=== PATIENT | male | born 1980 | race Caucasian/White ===

== ENCOUNTER 2016-05-15 12:10 | Emergency (ER) | payer OTHER ==
[2016-05-15 13:19] LABS: Urine Bilirubin Negative (Negative); Urine Glucose Negative (Negative); Urine Nitrite Negative (Negative)
[2016-05-15 13:39] LABS: Hematocrit 47 % (42-52); Hemoglobin 15.7 g/dl (14.0-18.0); Mean Corpuscular HGB Conc 34 g/dl (31-36); Mean Corpuscular Hemoglobin 29 pg (27-31); Mean Corpuscular Volume 86 fL (80-94); Mean Platelet Volume 7 um3 (7.4-10.4); Red Blood Count 5.45 10^6/ul (4.0-5.4); Red Cell Distribution Width 14 % (10.5-15); White Blood Count 8.8 10^3/ul (3.5-10.8)
[2016-05-15 13:43] LABS: Benzodiazepine Urine Screen Presumptive Positive (None Detect)
[2016-05-15 13:58] LABS: ALT 44 U/L (7-52); AST 22 U/L (13-39); Alkaline Phosphatase 55 U/L (34-104); Anion Gap 5 mmol/L (2-11); BUN/Creatinine Ratio 14.3 (8-20); Blood Urea Nitrogen 13 mg/dL (6-24); CO2 Carbon Dioxide 30 mmol/L (22-32); Calcium 9.2 mg/dL (8.6-10.3); Chloride 103 mmol/L (101-111); EGFR African American 122.7 (>60); EGFR Non-African American 95.4 (>60); Globulin 2.5 g/dL (2-4); Glucose 83 mg/dL (70-100); Potassium 3.9 mmol/L (3.5-5.0); Sodium 138 mmol/L (133-145); Total Protein 6.5 g/dL (6.4-8.9)
[2016-05-15 14:16] LABS: Acetaminophen < 15 mcg/mL; Alcohol < 10 mg/dL (<10); Salicylate < 2.50 mg/dL (<30)
[2016-05-15 14:26] LABS: TSH (Thyroid Stimulating Horm) 1.31 mcIU/mL (0.34-5.60)
[2016-05-15 16:03] VITALS: BP 121/77
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
== END 2016-05-15 17:00 | disposition home or self-care (01) ==
LOC: ED 12:10
DX: F32.9 Major depressive disorder, single episode, unspecified (principal); R45.851 Suicidal ideations
CPT/HCPCS: 36415; 80053; 80307; 80320; 80329; 81003; 84443; 85025; 99284; G0480

== ENCOUNTER 2016-06-20 20:37 | Inpatient (IN) | payer OTHER ==
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
[2016-06-20 21:49] LABS: Hematocrit 50 % (42-52); Hemoglobin 16.6 g/dl (14.0-18.0); Mean Corpuscular HGB Conc 33 g/dl (31-36); Mean Corpuscular Hemoglobin 29 pg (27-31); Mean Corpuscular Volume 86 fL (80-94); Mean Platelet Volume 7 um3 (7.4-10.4); Red Cell Distribution Width 14 % (10.5-15); White Blood Count 7.5 10^3/ul (3.5-10.8)
[2016-06-20 22:00] LABS: Urine Bacteria Absent (Absent); Urine Bilirubin Negative (Negative); Urine Glucose Negative (Negative); Urine Nitrite Negative (Negative)
[2016-06-20 22:02] LABS: ALT 26 U/L (7-52); AST 17 U/L (13-39); Albumin 4.4 g/dL (3.2-5.2); Alkaline Phosphatase 54 U/L (34-104); Anion Gap 3 mmol/L (2-11); BUN/Creatinine Ratio 13.6 (8-20); Blood Urea Nitrogen 16 mg/dL (6-24); CO2 Carbon Dioxide 34 mmol/L (22-32); Calcium 9.9 mg/dL (8.6-10.3); Chloride 101 mmol/L (101-111); EGFR African American 90.9 (>60); EGFR Non-African American 70.7 (>60); Globulin 2.9 g/dL (2-4); Glucose 84 mg/dL (70-100); Potassium 4.5 mmol/L (3.5-5.0); Sodium 138 mmol/L (133-145); Total Protein 7.3 g/dL (6.4-8.9)
[2016-06-20 22:10] LABS: Benzodiazepine Urine Screen Presumptive Positive (None Detect)
[2016-06-20 22:24] LABS: Acetaminophen < 15 mcg/mL; Alcohol < 10 mg/dL (<10); Salicylate < 2.50 mg/dL (<30)
[2016-06-20 22:35] LABS: TSH (Thyroid Stimulating Horm) 1.52 mcIU/mL (0.34-5.60)
[2016-06-21] MEDS ORDERED: clonazePAM TAB(*) 1 MG PO ONE (13:48)
[2016-06-21] MEDS ORDERED: ARIPiprazole TAB* 5 MG PO ONE (13:52)
[2016-06-21] MEDS ORDERED: Nicotine Inhaler* 10 MG AMP INH PRN (16:12)
[2016-06-21] MEDS ORDERED: Nicotine GUM* 2 MG PO PRN (16:12)
[2016-06-21] MEDS ORDERED: Acetaminophen TAB* 325 MG PO PRN (16:14)
[2016-06-21] MEDS ORDERED: LORazepam TAB(*) 1 MG PO PRN (16:14)
[2016-06-21] MEDS ORDERED: Al Hydrox/Mg Hydrox/Simet LIQ* 30 ML UDC PO PRN (16:15)
--- NOTE | 2016-06-21 16:56 | RAD ---
INDICATION: Fall. Evaluate for intracranial injury. COMPARISON: None TECHNIQUE: Noncontrast axial source images were acquired from the skull base to the vertex. FINDINGS: Ventricles/sulci: The ventricles and cisterns are normal in size and configuration for age. Brain parenchyma: There is no focal parenchymal finding, evidence of intracranial mass, or intracranial mass effect. Intracranial hemorrhage:None. Extra-axial spaces: There are no abnormal extra axial fluid collections or evidence of extra-axial mass. Calvarium: There is no calvarial fracture or other calvarial abnormality. Scalp: There is no evidence of scalp or extracalvarial soft tissue abnormality. Paranasal sinuses/mastoid: The paranasal sinuses and mastoid air cells are clear. Other: None. IMPRESSION: NEGATIVE EXAMINATION
[2016-06-21] MEDS ORDERED: LORazepam INJ* 2 MG/ML 1 ML VIAL IM ONE (17:34)
[2016-06-21] MEDS ORDERED: diPHENhydraMINE IV* 50 MG/ML 1 ml VIAL (BENADRYL) IM ONE (17:35)
[2016-06-21] MEDS ORDERED: Haloperidol INJ IV/IM* 5 MG/ML AMP IM ONE (17:36)
[2016-06-21 20:53] LABS: BUN/Creatinine Ratio 12.9 (8-20); Calcium 9.7 mg/dL (8.6-10.3); EGFR African American 85.8 (>60); EGFR Non-African American 66.7 (>60); Potassium 4.5 mmol/L (3.5-5.0)
[2016-06-22] MEDS: CMCS: Amphetamine/Dextroamph ER(NF) 10 MG CAP.ER PO SCH ×2 (08:31→09:57)
[2016-06-22] MEDS: Sertraline* 100 MG TAB PO SCH (17:33)
[2016-06-22] MEDS: buPROPion TAB* 75 MG PO SCH (17:34)
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
[2016-06-23] MEDS: Sertraline* 100 MG TAB PO SCH (09:35)
[2016-06-23] MEDS: buPROPion TAB* 75 MG PO SCH ×2 (09:35→16:53)
[2016-06-23] MEDS: CMCS: Amphetamine/Dextroamph ER(NF) 10 MG CAP.ER PO SCH (09:35)
--- NOTE | 2016-06-23 19:50 | PN ---
Progress Note - Progress Note Note: Patient told there are two patients on the unit (did not disclose their names) who have tested positive for Influenza A and I am recommending taking Tamiflu as a prophylactic measure. I made it clear this was optional. He agreed to the treatment after hearing of the indications, risks, benefits and alternatives.
[2016-06-23] MEDS: traZODone TAB* 50 MG TAB PO SCH (21:50)
[2016-06-24] MEDS: Oseltamivir CAP* 75 MG PO SCH (10:27)
[2016-06-24] MEDS: Sertraline* 100 MG TAB PO SCH (10:27)
[2016-06-24] MEDS: CMCS: Amphetamine/Dextroamph ER(NF) 10 MG CAP.ER PO SCH (10:27)
[2016-06-24] MEDS: buPROPion TAB* 75 MG PO SCH ×2 (10:28→17:09)
--- NOTE | 2016-06-24 16:47 | PN ---
Subjective - Subjective Subjective: Noel endorses improved sleep (with the prescribed Trazodone), improving mood despite being distressed by continued admission and lack of a clear sense about how long he will remain admitted here. He avidly denies suicidal/homicidal ideation. He was evasive when confronted about inconsistencies in his story ( not mentioning Dr. Yang, recent hospitalization in [place], self-injury, and thoughts and treat of suicide, and previous ED visit here on recommendation of outpatient psychiatrist). He asserts the text messages provided by his were edited and not properly translated from Polish to Bulgarian. Per staff, he has been more visible in the milieu and has selectively attended some unit's activities. He has submitted a 72-hour notice, Objective - Appearance Appearance: Healthy Appearing Dysmorphic Features: No Hygiene: Normal Grooming: Fairly Well Kept - Behavior Psychomotor Activities: Normal Exhibits Abnormal Movement: No - Attitude and Relatedness Attitude and Relatedness: Superficially Cooperative Eye Contact: Fair - Speech Quality: Unpressured Latencies: Normal Quantity: Appropriate - Mood Patient's Decription of Mood: "Okay" - Affect Observed Affect: Constricted Affect Consistent with: Dysphoria - Thought Process Patient's Thought Process: Coherent, Goal Directed Thought Content: No Passive Wish, No Suicidal Planning, No Homicidal Ideation, No Paranoid Ideation - Sensorium Experiencing Hallucinations: No, Sensorium is Clear - Level of Consciousness Level of Consciousness: Alert Orientation: Yes Intact - Impulse Control Impulse Control: Intact - Insight and Judgement Insight and Judgement: Fair - Group Participation Particating in Group Activities: Yes - Medication Management Medication Management Adherence: Yes Assessment - Assessment Merits Inpatient Hospitalization: For Ongoing Evaluation, Consolidate Improvements, For Discharge Planning Inpatient DSM-IV Dx: Adjustment disorder with mixed disturbances of emotions and conduct. 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 Cluster B traits. Clinical Impression: A 35-year-old [place] citizen who was brought in by police from his 's friend's home where he presented demanding to see his and threatening to harm the 's friends and her family. The police were called and drove him to the ED for [facility] given his psychiatric history. He denies history of previous psychiatric admission (collateral info indicates otherwise). He has previous diagnoses of panic disorder, ADHD, and major depressive disorder. He is medicated with sertraline 100 mg daily, Wellbutrin XL 150 mg daily, Adderall XR 30 mg daily, and clonazepam 1 mg p.o. daily p.r.n. for anxiety. He asserts adherence to treatment. His reports that was not the case. Medical history is remarkable for a syncopal episode while in the emergency department. He denies any family history of psychiatric illnesses or completed suicides. He denies substance abuse. He listed stressors of currently strained relationship with his , not being able to see his 3-year-old daughter, having been served with an order of protection while admitted, and feeling socially isolated. Superficially engaged in programming here, reporting distress related to continued admission, but improving mood and absence of suicidal/homicidal ideation and he contracts for safety. Tolerating continuation of trials of Adderall and Sertraline and new trial of Trazodone. He needs continued admission to assess his risks. He has submitted a 72-hour notice. Plan - Plan Treatment Plan: Name: NOEL SRIVASTAVA Birthdate: 1980 [id number] Psychological testing ordered; Continued Medication Management: Continue Outpt Medication Medications: Current Medications Acetaminophen (Tylenol Tab*) 650 mg PO Q6H PRN PRN Reason: PAIN Al Hydrox/Mg Hydrox/Simethicone (Maalox Plus*) 30 ml PO Q6H PRN PRN Reason: INDIGESTION Amphetamine/Dextroamphetamine (Adderal Xr (Nf)) 30 mg PO DAILY [facility] Last Admin: 06/24/16 10:27 Dose: Not Given Bupropion HCl (Wellbutrin Tab*) 75 mg PO 0800,1700 [facility] Last Admin: 06/24/16 10:28 Dose: 75 mg Lorazepam (Ativan Tab(*)) 2 mg PO Q6H PRN PRN Reason: AGITATION/ANXIETY/INSOMNIA Oseltamivir Phosphate (Tamiflu Cap*) 75 mg PO DAILY [facility] Stop: 07/03/16 09:01 Last Admin: 06/24/16 10:27 Dose: 75 mg Sertraline HCl (Zoloft*) 100 mg PO DAILY [facility] Last Admin: 06/24/16 10:27 Dose: 100 mg Trazodone HCl (Desyrel Tab*) 50 mg PO BEDTIME [facility] Last Admin: 06/23/16 21:50 Dose: 50 mg - Discharge Plan Discharge Plan: Outpatient Follow Up Outpatient Program: Private Clinician(s) Additional Comments: Dr. Nik Yang
[2016-06-24] MEDS: traZODone TAB* 50 MG TAB PO SCH (21:08)
[2016-06-25] MEDS: Sertraline* 100 MG TAB PO SCH (10:59)
[2016-06-25] MEDS: Oseltamivir CAP* 75 MG PO SCH (11:00)
[2016-06-25] MEDS: buPROPion TAB* 75 MG PO SCH ×2 (11:01→16:49)
[2016-06-25] MEDS: CMCS: Amphetamine/Dextroamph ER(NF) 10 MG CAP.ER PO SCH (11:02)
--- NOTE | 2016-06-25 12:31 | PN ---
Subjective - Subjective Service Type: 23586 Hosp care 25 min moderate complexity Subjective: Noel asks for discharge, had submitted in writing his request on Friday. He understands that since I cannot ascertain at this time the safety of his against his threats to kill her, nor his safety against his threats to kill himself, I will ask for a court hearing on the matter of retention for continued involuntary psychiatric care. I understand from Dr Jay that Noel had not been forthcoming about certain post facts of his case and had offered to him, similar to his reports to me, reports conflicting with evidence such as text messages indicating threats on his and his 's life. These conflicting reports reduce the reliability of his current report of remitted SI/HI. Noel explained how he feels his is misrepesenting the facts of the case by stating that he could accuse me of threatening him like she is accusing him of threatening her. MMPI is in progress, which may help clarify diagnosis. Objective - Appearance Appearance: Healthy Appearing Dysmorphic Features: No Hygiene: Normal Grooming: Well Kept - Behavior Psychomotor Activities: Normal Exhibits Abnormal Movement: No - Attitude and Relatedness Attitude and Relatedness: Guarded Eye Contact: Fair - Speech Quality: Unpressured Latencies: Normal Quantity: Appropriate - Mood Patient's Decription of Mood: "Great" - - "Except worried about my career, worried about missing work" - Affect Observed Affect: Tense Affect Consistent with: Dysphoria - Thought Process Patient's Thought Process: Coherent, Goal Directed Thought Content: No Passive Wish, No Suicidal Planning, No Homicidal Ideation, No Paranoid Ideation - Sensorium Experiencing Hallucinations: No, Sensorium is Clear Type of Hallucinations: Visual: No, Auditory: No, Command: No - Level of Consciousness Level of Consciousness: Alert Orientation: Yes Intact, Yes Orientated to Time, Yes Orientated to Place, Yes Orientated to Person - Impulse Control Impulse Control: Intact - Insight and Judgement Insight and Judgement: Poor - Group Participation Particating in Group Activities: Yes Group Participation Comments: but only rarely - Medication Management Medication Management Adherence: Yes Assessment - Assessment Merits Inpatient Hospitalization: For Immediate Safety, For Stabilization, For Ongoing Evaluation, For Discharge Planning Inpatient DSM-IV Dx: Adjustment disorder with mixed disturbances of emotions and conduct. 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 Cluster B traits. Clinical Impression: Noel is a 35 year-old man admitted for safety, assessment and treatment after texting threats to his to kill himself and to kill her. He has been guarded and not forthcoming in his reports of history, calling into question reliability of his report of subjective mental status. We cannot guarantee the safety of others from Noel, but we can warn them, and we can gather more information to inform our understanding of his mental status and how that might impact safety concerns. MMPI is in progress. He has put in a note indicating his intent to leave the facility, so we will file for a retention hearing. He continues on Wellbutrin, Zoloft and prn Ativan (not taking). He is refusing ordered Adderall. Plan - Plan Treatment Plan: Name: NOEL SRIVASTAVA Birthdate: 1980 [id number] Continue current meds. Gather collateral, complete MMPI. Encourage more forthcoming report of history and subjective experience. Encourage group attendance. Arrange for f/u with [facility] per patient preference. Continued Medication Management: Continue Outpt Medication Medications: Current Medications Acetaminophen (Tylenol Tab*) 650 mg PO Q6H PRN PRN Reason: PAIN Al Hydrox/Mg Hydrox/Simethicone (Maalox Plus*) 30 ml PO Q6H PRN PRN Reason: INDIGESTION Amphetamine/Dextroamphetamine (Adderal Xr (Nf)) 30 mg PO DAILY [facility] Last Admin: 06/25/16 11:02 Dose: Not Given Bupropion HCl (Wellbutrin Tab*) 75 mg PO 0800,1700 [facility] Last Admin: 06/25/16 11:01 Dose: 75 mg Lorazepam (Ativan Tab(*)) 2 mg PO Q6H PRN PRN Reason: AGITATION/ANXIETY/INSOMNIA Oseltamivir Phosphate (Tamiflu Cap*) 75 mg PO DAILY [facility] Stop: 07/03/16 09:01 Last Admin: 06/25/16 11:00 Dose: 75 mg Sertraline HCl (Zoloft*) 100 mg PO DAILY [facility] Last Admin: 06/25/16 10:59 Dose: 100 mg Trazodone HCl (Desyrel Tab*) 50 mg PO BEDTIME [facility] Last Admin: 06/24/16 21:08 Dose: Not Given - Discharge Plan Discharge Plan: Outpatient Follow Up
[2016-06-25] MEDS: traZODone TAB* 50 MG TAB PO SCH (20:39)
[2016-06-26] MEDS: Oseltamivir CAP* 75 MG PO SCH (08:36)
[2016-06-26] MEDS: buPROPion TAB* 75 MG PO SCH (08:36)
[2016-06-26] MEDS: Sertraline* 100 MG TAB PO SCH (08:36)
[2016-06-26] MEDS: CMCS: Amphetamine/Dextroamph ER(NF) 10 MG CAP.ER PO SCH (08:36)
--- NOTE | 2016-06-26 16:30 | PN ---
Subjective - Subjective Service Type: 31392 Hosp care 25 min moderate complexity Subjective: Noel continues to give 'all is well' report at complete variance with all other reports of his behavior in recent days, which is that he has made serious threats toward his , his 's friends, and coworkers at [employer]. Noel had indicated earlier today that he no longer wished to pursue a legal challenge to his admission, then when approached to document his decision in writing, stated he wished to pursue a legal challenge. Objective - Appearance Appearance: Healthy Appearing Dysmorphic Features: No Hygiene: Normal Grooming: Fairly Well Kept - Behavior Psychomotor Activities: Normal Exhibits Abnormal Movement: No - Attitude and Relatedness Attitude and Relatedness: Superficially Cooperative Eye Contact: Fair - Speech Quality: Unpressured Latencies: Normal Quantity: Terse - Mood Patient's Decription of Mood: "Okay" - Affect Observed Affect: Fair Affect Consistent with: Euthymia - Thought Process Patient's Thought Process: Coherent, Goal Directed Thought Content: No Passive Wish, No Suicidal Planning, No Homicidal Ideation, No Paranoid Ideation - Sensorium Experiencing Hallucinations: No, Sensorium is Clear Type of Hallucinations: Visual: No, Auditory: No, Command: No - Level of Consciousness Level of Consciousness: Alert Orientation: Yes Intact, Yes Orientated to Time, Yes Orientated to Place, Yes Orientated to Person - Impulse Control Impulse Control: Intact - Insight and Judgement Insight and Judgement: Poor - Group Participation Particating in Group Activities: No - Medication Management Medication Management Adherence: Yes Assessment - Assessment Merits Inpatient Hospitalization: For Immediate Safety, For Stabilization, For Discharge Planning, Pending Safe DC Plan Inpatient DSM-IV Dx: Adjustment disorder with mixed disturbances of emotions and conduct. 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 Cluster B traits. Clinical Impression: Noel is a 35 year-old man admitted for safety, assessment and treatment after texting threats to his to kill himself and to kill her. He has been guarded and not forthcoming in his reports of history, calling into question reliability of his report of subjective mental status. We cannot guarantee the safety of others from Noel, but we can warn them, and we can gather more information to inform our understanding of his mental status and how that might impact safety concerns. MMPI is in progress. He has put in a note indicating his intent to leave the facility, so we will file for a retention hearing. He continues on Wellbutrin, Zoloft and prn Ativan (not taking). He is refusing ordered Adderall. 06.26.16 Noel continues to minimize and refute other's reports of his threats toward them. So far, we have report of threats to slit his 's throat and cut off her head, to kill her friends and their children, and to harm coworkers. Attempted to request collateral from his psychiatrist Dr Zarate, but the [facility] phone staff sent me in circles through their convoluted phone gateway: awaiting return call from voicemail left for Dr Zarate at [facility] office. Court papers are filed, hearing scheduled for 9:30 am Friday. For abdi details of threats, please see Ms Frey's note from 06.26.16 at 1303. Plan - Plan Treatment Plan: Name: NOEL SRIVASTAVA Birthdate: 1980 [id number] Discontinue Adderall and Wellbutrin, start Zyprexa 10 mg at bedtime against disorganized thought. Gather collateral, complete MMPI. Encourage more forthcoming report of history and subjective experience. Encourage group attendance. Consider possibility of long-term care with emerging picture of paranoia and multiple threats of violence with completely guarded presentation. Medications: Current Medications Acetaminophen (Tylenol Tab*) 650 mg PO Q6H PRN PRN Reason: PAIN Al Hydrox/Mg Hydrox/Simethicone (Maalox Plus*) 30 ml PO Q6H PRN PRN Reason: INDIGESTION Amphetamine/Dextroamphetamine (Adderal Xr (Nf)) 30 mg PO DAILY [facility] Last Admin: 06/26/16 08:36 Dose: Not Given Bupropion HCl (Wellbutrin Tab*) 75 mg PO 0800,1700 [facility] Last Admin: 06/26/16 08:36 Dose: 75 mg Lorazepam (Ativan Tab(*)) 2 mg PO Q6H PRN PRN Reason: AGITATION/ANXIETY/INSOMNIA Oseltamivir Phosphate (Tamiflu Cap*) 75 mg PO DAILY [facility] Stop: 07/03/16 09:01 Last Admin: 06/26/16 08:36 Dose: 75 mg Sertraline HCl (Zoloft*) 100 mg PO DAILY [facility] Last Admin: 06/26/16 08:36 Dose: 100 mg Trazodone HCl (Desyrel Tab*) 50 mg PO BEDTIME [facility] Last Admin: 06/25/16 20:39 Dose: 50 mg - Discharge Plan Discharge Plan: Consider Longer Term Tx
[2016-06-26] MEDS: traZODone TAB* 50 MG TAB PO SCH (21:31)
[2016-06-26] MEDS: OLANzapine TAB*ODT* 10 MG TAB PO SCH (21:31)
[2016-06-27] MEDS: Sertraline* 100 MG TAB PO SCH (09:42)
[2016-06-27] MEDS: Oseltamivir CAP* 75 MG PO SCH (09:42)
--- NOTE | 2016-06-27 11:14 | PN ---
Subjective - Subjective Service Type: 64986 Hosp care 15 min low complexity Subjective: Noel reports today that he thinks his aggression and threatening behavior are all related to taking 6 mg daily of Klonopin on prescription from Dr Yang. He reports that his agrees with him on this point. He reports that he has been seeing Dr Yang for the past year and a half. He reports that he began working with Dr Myles Zarate about one year ago and continued to see Dr Yang as he was seeing Dr Zarate. He reports that they were aware of each other providing overlapping care. Dr Yang reports he did not know Noel was seeing Dr Zarate. Noel reports that the only care he received before receiving care from Reggie Yang and Tessa was in [phone] from a provider in [place] whose name he has forgotten. He told me previously that he had only seen someone in a clinic while in [place] this past May. Dr Yang reports that it was his understanding that Noel had taken an overdose of medications as a suicide attempt while in [place] in May and had been psychiatrically hospitalized. Noel violated the order of protection held by his yesterday. He told me today that he had not been informed of the no contact aspect of the order when he was served Friday of last week. Noel reports that he did not drive into the garage as had been reported by police, and says he only skidded into his 's car because the driveway of her friends' home where she had parked was icy, and that he only lightly tapped the bumper. Noel reports that he talked with his boss at [employer] about the report of the Employment Services Director there that he had made threats against other [employer] employees, and his boss told him he had heard nothing about this. Objective - Appearance Appearance: Healthy Appearing Dysmorphic Features: No Hygiene: Normal Grooming: Fairly Well Kept - Behavior Psychomotor Activities: Normal Exhibits Abnormal Movement: No - Attitude and Relatedness Attitude and Relatedness: Superficially Cooperative Eye Contact: Fair - Speech Quality: Unpressured Latencies: Normal Quantity: Appropriate - Mood Patient's Decription of Mood: "Much better" - Affect Observed Affect: Depressed Affect Consistent with: Dysphoria - Thought Process Patient's Thought Process: Coherent, Goal Directed Thought Content: No Passive Wish, No Suicidal Planning, No Homicidal Ideation, No Paranoid Ideation - Sensorium Experiencing Hallucinations: No, Sensorium is Clear Type of Hallucinations: Visual: No, Auditory: No, Command: No - Level of Consciousness Level of Consciousness: Alert Orientation: Yes Intact, Yes Orientated to Time, Yes Orientated to Place, Yes Orientated to Person - Impulse Control Impulse Control: Intact - Insight and Judgement Insight and Judgement: Poor - also appears to be giving false report of events, which may appear as poor I/J - Group Participation Particating in Group Activities: Yes Group Participation Comments: but only discharge planning group - Medication Management Medication Management Adherence: Yes Assessment - Assessment Merits Inpatient Hospitalization: For Immediate Safety, For Stabilization, Diagnosis Determination, To Initiate Treatment, For Ongoing Evaluation, For Discharge Planning, Pending Safe DC Plan Inpatient DSM-IV Dx: Adjustment disorder with mixed disturbances of emotions and conduct. 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 Cluster B traits. Clinical Impression: Noel is a 35 year-old man admitted for safety, assessment and treatment after texting threats to his to kill himself and to kill her. He has been guarded and not forthcoming in his reports of history, calling into question reliability of his report of subjective mental status. We cannot guarantee the safety of others from Noel, but we can warn them, and we can gather more information to inform our understanding of his mental status and how that might impact safety concerns. MMPI is in progress. He has put in a note indicating his intent to leave the facility, so we will file for a retention hearing. He continues on Wellbutrin, Zoloft and prn Ativan (not taking). He is refusing ordered Adderall. 06.26.16 Noel continues to minimize and refute other's reports of his threats toward them. So far, we have report of threats to slit his 's throat and cut off her head, to kill her friends and their children, and to harm coworkers. Attempted to request collateral from his psychiatrist Dr Zarate, but the [facility] phone staff sent me in circles through their convoluted phone gateway: awaiting return call from voicemail left for Dr Zarate at [facility] office. Court papers are filed, hearing scheduled for 9:30 am Friday. For abdi details of threats, please see Tk's note from 06.26.16 at 1303. 06.27.17 Noel continues to state that he has no current SI/HI and that taking Klonopin 2 mg tid caused him to make threats. His report of events is different on post points from that of police, his , and Dr Member. Examples include his report that he did not hit the garage door of his 's friends house with his car, that he only lightly tapped the bumper of her car, that his psychiatrists knew of each other's overlapping care for him, that he only saw someone in a clinic in [place] in May, that he has made no threats toward coworkers. Given the multiple discrepancies between his reports and those of others, his specific reports regarding dangerous intent and plan are unreliable. Given the allegations of multiple threats made on others' lives, disposition into police custody or to long-term care with a forensics component may be necessary to ensure the safety of others. He violated the OOP against him, so [facility] has asked that they be informed when he is discharged. Plan - Plan Treatment Plan: Name: NOEL SRIVASTAVA Birthdate: 1980 [id number] Discontinue Ativan, which he has not been taking. Gather collateral (awaiting still return of calls x [address] Myles Zarate), complete MMPI. Encourage more forthcoming report of history and subjective experience. Encourage group attendance. Consider possibility of long-term care with emerging picture of paranoia and multiple threats of violence with completely guarded presentation. Medications: Current Medications Acetaminophen (Tylenol Tab*) 650 mg PO Q6H PRN PRN Reason: PAIN Al Hydrox/Mg Hydrox/Simethicone (Maalox Plus*) 30 ml PO Q6H PRN PRN Reason: INDIGESTION Lorazepam (Ativan Tab(*)) 2 mg PO Q6H PRN PRN Reason: AGITATION/ANXIETY/INSOMNIA Olanzapine (Zyprexa *Odt*) 10 mg PO BEDTIME [facility] Last Admin: 06/26/16 21:31 Dose: 10 mg Oseltamivir Phosphate (Tamiflu Cap*) 75 mg PO DAILY [facility] Stop: 07/03/16 09:01 Last Admin: 06/27/16 09:42 Dose: 75 mg Sertraline HCl (Zoloft*) 100 mg PO DAILY [facility] Last Admin: 06/27/16 09:42 Dose: 100 mg Trazodone HCl (Desyrel Tab*) 50 mg PO BEDTIME [facility] Last Admin: 06/26/16 21:31 Dose: 50 mg - Discharge Plan Discharge Plan: Consider Longer Term Tx
[2016-06-27] MEDS: traZODone TAB* 50 MG TAB PO SCH (20:43)
[2016-06-27] MEDS: OLANzapine TAB*ODT* 10 MG TAB PO SCH (20:43)
[2016-06-28] MEDS: Oseltamivir CAP* 75 MG PO SCH (10:04)
[2016-06-28] MEDS: Sertraline* 100 MG TAB PO SCH (10:04)
--- NOTE | 2016-06-28 13:38 | PN ---
Subjective - Subjective Service Type: 59774 Hosp care 15 min low complexity Subjective: Noel voiced understanding and acceptance of potential side-effects of olanzapine, including but not limited to bone marrow suppression, onset of diabetes, weight gain, and dyslipidemia. He voiced his choice to take the medication for benefits he feels in orgainizing his thought and behavior. He again stated his belief that his aggressive and threatening behavior was due to Klonopin. Toxicology screen on admission was positive for benzodiazepines and amphetamines. I explained to Noel that there are strong indications gained from recent history, current presentation and collateral reports from Dr Zarate and Dr Yang that a personality disorder should be under consideration for treatment, as evidenced by self-report of lying a lot, acute sensitivity to abandonment, and recent bout of erratic and threatening behavior. Reviewed also current legal issues and impediment to safe disposition, with court hearing Friday. Noel reported he would complete MMPI. Objective - Appearance Appearance: Healthy Appearing Dysmorphic Features: No Hygiene: Normal Grooming: Fairly Well Kept - Behavior Psychomotor Activities: Normal Exhibits Abnormal Movement: No - Attitude and Relatedness Attitude and Relatedness: Cooperative Eye Contact: Good - Speech Quality: Unpressured Latencies: Normal Quantity: Appropriate - Mood Patient's Decription of Mood: "Great" - Affect Observed Affect: Depressed Affect Consistent with: Dysphoria - Thought Process Patient's Thought Process: Coherent, Goal Directed Thought Content: No Passive Wish, No Suicidal Planning, No Homicidal Ideation, No Paranoid Ideation - Sensorium Experiencing Hallucinations: No, Sensorium is Clear Type of Hallucinations: Visual: No, Auditory: No, Command: No - Level of Consciousness Level of Consciousness: Alert Orientation: Yes Intact, Yes Orientated to Time, Yes Orientated to Place, Yes Orientated to Person - Impulse Control Impulse Control: Intact - Insight and Judgement Insight and Judgement: Poor - Group Participation Particating in Group Activities: No - Medication Management Medication Management Adherence: Yes Assessment - Assessment Merits Inpatient Hospitalization: For Immediate Safety - of others more so than self, For Stabilization, Diagnosis Determination, To Initiate Treatment, For Ongoing Evaluation, For Discharge Planning, Pending Safe DC Plan Inpatient DSM-IV Dx: Adjustment disorder with mixed disturbances of emotions and conduct. 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 Cluster B traits. Clinical Impression: Noel is a 35 year-old man admitted for safety, assessment and treatment after texting threats to his to kill himself and to kill her. He has been guarded and not forthcoming in his reports of history, calling into question reliability of his report of subjective mental status. We cannot guarantee the safety of others from Noel, but we can warn them, and we can gather more information to inform our understanding of his mental status and how that might impact safety concerns. MMPI is in progress. He has put in a note indicating his intent to leave the facility, so we will file for a retention hearing. He continues on Wellbutrin, Zoloft and prn Ativan (not taking). He is refusing ordered Adderall. 06.26.16 Noel continues to minimize and refute other's reports of his threats toward them. So far, we have report of threats to slit his 's throat and cut off her head, to kill her friends and their children, and to harm coworkers. Attempted to request collateral from his psychiatrist Dr Zarate, but the [facility] phone staff sent me in circles through their convoluted phone gateway: awaiting return call from voicemail left for Dr Zarate at [facility]' [facility] office. Court papers are filed, hearing scheduled for 9:30 am Friday. For abdi details of threats, please see Ms Frey's note from 06.26.16 at 1303. 06.27.16 Noel continues to state that he has no current SI/HI and that taking Klonopin 2 mg tid caused him to make threats. His report of events is different on post points from that of police, his , and Dr Member. Examples include his report that he did not hit the garage door of his 's friends house with his car, that he only lightly tapped the bumper of her car, that his psychiatrists knew of each other's overlapping care for him, that he only saw someone in a clinic in [place] in May, that he has made no threats toward coworkers. Given the multiple discrepancies between his reports and those of others, his specific reports regarding dangerous intent and plan are unreliable. Given the allegations of multiple threats made on others' lives, disposition into police custody or to long-term care with a forensics component may be necessary to ensure the safety of others. He violated the OOP against him, so [facility] has asked that they be informed when he is discharged. 06.28.16 Noel is working still on the MMPI, which may help with diagnosis of this guarded man whose report is at variance more than it is in agreement with those of others who have been the object of his threats. Court Friday on issue of retention. Disposition pending MMPI result and further clarification of safety issues posed by multiple specific threats. Plan - Plan Treatment Plan: Name: NOEL SRIVASTAVA Birthdate: 1980 [id number] Discontinue Ativan, which he has not been taking. Complete MMPI. Encourage more forthcoming report of history and subjective experience. Encourage group attendance. Consider possibility of long-term care with emerging picture of paranoia and multiple threats of violence with guarded presentation hampering full assessment. Medications: Current Medications Acetaminophen (Tylenol Tab*) 650 mg PO Q6H PRN PRN Reason: PAIN Al Hydrox/Mg Hydrox/Simethicone (Maalox Plus*) 30 ml PO Q6H PRN PRN Reason: INDIGESTION Lorazepam (Ativan Tab(*)) 2 mg PO Q6H PRN PRN Reason: AGITATION/ANXIETY/INSOMNIA Olanzapine (Zyprexa *Odt*) 10 mg PO BEDTIME BECKY Last Admin: 06/27/16 20:43 Dose: 10 mg Oseltamivir Phosphate (Tamiflu Cap*) 75 mg PO DAILY BECKY Stop: 07/03/16 09:01 Last Admin: 06/28/16 10:04 Dose: 75 mg Sertraline HCl (Zoloft*) 100 mg PO DAILY BECKY Last Admin: 06/28/16 10:04 Dose: 100 mg Trazodone HCl (Desyrel Tab*) 50 mg PO BEDTIME BECKY Last Admin: 06/27/16 20:43 Dose: 50 mg - Discharge Plan Discharge Plan: Consider Longer Term Tx
[2016-06-28] MEDS: traZODone TAB* 50 MG TAB PO SCH (20:10)
[2016-06-28] MEDS: OLANzapine TAB*ODT* 10 MG TAB PO SCH (20:10)
[2016-06-29] MEDS: Sertraline* 100 MG TAB PO SCH (09:08)
[2016-06-29] MEDS: Oseltamivir CAP* 75 MG PO SCH (09:08)
[2016-06-29] MEDS: traZODone TAB* 50 MG TAB PO SCH (20:28)
[2016-06-29] MEDS: OLANzapine TAB*ODT* 10 MG TAB PO SCH (20:28)
[2016-06-30] MEDS: Sertraline* 100 MG TAB PO SCH (09:58)
[2016-06-30] MEDS: traZODone TAB* 50 MG TAB PO SCH (20:26)
[2016-06-30] MEDS: OLANzapine TAB*ODT* 10 MG TAB PO SCH (20:26)
[2016-07-01 08:04] VITALS: BP 101/64
[2016-07-01] MEDS: Sertraline* 100 MG TAB PO SCH (08:53)
--- NOTE | 2016-07-01 13:13 | DS ---
Subjective - Subjective Service Types: [id number] [facility] Day Mgmt complex over 30 min Discharge Date: 07/01/16 Subjective: A court hearing on retention for treatment was decided in Jos's favor, so he will be discharged. He tells me that he has no intent or plan to harm himself or others. He reports being in a good mood. He denies any psychotic symptoms. Objective - Appearance Appearance: Well Developed/Nourished, Healthy Appearing Dysmorphic Features: No Hygiene: Normal Grooming: Well Kept - Behavior Psychomotor Activities: Normal Exhibits Abnormal Movement: No - Attitude and Relatedness Attitude and Relatedness: Cooperative Eye Contact: Good - Speech Quality: Unpressured Latencies: Normal Quantity: Appropriate - Mood Patient's Decription of Mood: "Good" - Affect Observed Affect: Fair Affect Consistent with: Euthymia - Thought Process Patient's Thought Process: Coherent, Goal Directed Thought Content: No Passive Wish, No Suicidal Planning, No Homicidal Ideation, No Paranoid Ideation - Sensorium Experiencing Hallucinations: No, Sensorium is Clear Type of Hallucinations: Visual: No, Auditory: No, Command: No - Level of Consciousness Level of Consciousness: Alert Orientation: Yes Intact, Yes Orientated to Time, Yes Orientated to Place, Yes Orientated to Person - Impulse Control Impulse Control: Intact - Insight and Judgement Insight and Judgement: Fair - Group Participation Particating in Group Activities: No - Medication Management Medication Management Adherence: Yes Treatment Course & Assessment Clinical Course & Impression: 06.25.16 Jos is a 35 year-old man admitted for safety, assessment and treatment after texting threats to his to kill himself and to kill her. He has been guarded and not forthcoming in his reports of history, calling into question reliability of his report of subjective mental status. We cannot guarantee the safety of others from Jos, but we can warn them, and we can gather more information to inform our understanding of his mental status and how that might impact safety concerns. MMPI is in progress. He has put in a note indicating his intent to leave the facility, so we will file for a retention hearing. He continues on Wellbutrin, Zoloft and prn Ativan (not taking). He is refusing ordered Adderall. 06.26.16 Jos continues to minimize and refute other's reports of his threats toward them. So far, we have report of threats to slit his 's throat and cut off her head, to kill her friends and their children, and to harm coworkers. Court papers are filed, hearing scheduled for 9:30 am Friday. For abdi details of threats, please see Ms Frey's note from 06.26.16 at 3013. 06.27.16 Jos continues to state that he has no current SI/HI and that taking Klonopin 2 mg tid caused him to make threats. His report of events is different on post points from that of police, his , and Dr . Examples include his report that he did not hit the garage door of his 's friends house with his car, that he only lightly tapped the bumper of her car, that his psychiatrists knew of each other's overlapping care for him, that he only saw someone in a clinic in [place] in May, that he has made no threats toward coworkers. Given the multiple discrepancies between his reports and those of others, his specific reports regarding dangerous intent and plan are unreliable. Given the allegations of multiple threats made on others' lives, disposition into police custody or to long-term care with a forensics component may be necessary to ensure the safety of others. He violated the OOP against him, so local law enforcement has asked that they be informed when he is discharged. 06.28.16 Jos is working still on the MMPI, which may help with diagnosis of this guarded man whose report is at variance more than it is in agreement with those of others who have been the object of his threats. Court Friday on issue of retention. Disposition pending MMPI result and further clarification of safety issues posed by multiple specific threats. 07.01.16 [address] Hernandez of [facility] Court ordered Jos's release today. MMPI completed over weekend, scored this morning, giving a 'fake good' profile with elevated conversion/hysteria scale nevertheless giving standard interpretation consistent with history concerning for Cluster B traits. Please see Dr Arndt's report for details. Social work staff has alerted local law enforcement, and he will discharge into their custody. His , under order of [facility] Judge Kimani Hernandez, therefore without potential additional charge of violation of order of protection, is being contacted today to alert her of Jos's discharge from hospital. Jos states he intends to continue care with Dr Zarate, with whom he kept a 12:30 pm phone appointment today, and to begin care with psychiatric providers in [place] as per arrangements being made by Ms Frey. Clear for Discharge: Other - Release orderd by the court. Inpatient DSM-IV Dx: Adjustment disorder with mixed disturbances of emotions and conduct. 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 Cluster B traits. - [place] II MR and Personality Disorder: Cluster B traits, r/o ASPD - [place] III Medical Illness: No active issues, hypogycemic spell on admission - [place] IV Stressors: discord in marriage Family: supportive brother came to visit Primary Support Group: brother and other family - [place] V CVC-[id number]: 50 Estimate of Highest-Past Year: 75 Discharge Planning - Discharge Planning Discharge Plan: Outpatient Follow Up Outpatient Program: Private Clinician(s) Recommendations for Continuing Care: Medication Management, Psychotherapy, Primary Care Followup Medications: Jos reports he will resume medications prescribed to him by Dr Myles Zarate: Cymbalta 30 mg po daily Lamictal, restarting at 25 mg po daily to avoid rash Abilify 5 mg po daily Discharge Planning: Prescriptions provided for discharge [] Yes [x] No : he reports plan to resume medications prescribed by Dr Zarate, of which he reports he has a good supply. Follow up care details as per social work arrangements. He plans to continue care with Dr Zarate of [facility] in [facility] for now, and ultimately with a provider in the [place] area. Ms Frey may have to call him after discharge to tell him of arrangements for an intake to a clinic in that area. Patient response to discharge plan: [x] eager for discharge [x] agreeable with discharge plan [] ambivalent about discharge [] disagrees with discharge today
--- NOTE | 2016-07-01 21:06 | CONS ---
PSYCHOLOGICAL CONSULT REPORT: DATE OF CONSULT: 07/01/16 REASON FOR REFERRAL: Jos was asked to complete the [place] Multiphasic Personality Inventory-2 (MMPI-2) secondary to concerns regarding lethality. His case involves threats of both to harm others as well as himself. Jos apparently had threatened to kill his as well as the family his now estranged has stayed with including their children. BEHAVIORAL OBSERVATIONS: Jos is a 35-year-old male who is from [place]. Although he was asked to complete testing recently after this admission, he did not comply with this request until today,immediately before his court appearance scheduled for this morning. Generally, he has not been engaged in programming and has been quite dismissive of efforts to interview. Nursing reports characterized Jos is only coming out of his room for meals. He has not attended programming nor engaged effectively in a patient relationship while here. As such, information in his report is based on prior interview attempts with Psychiatry as well as test results. TEST RESULTS: Jos has engaged in a systematic attempt to deny psychopathologies having elevated the emotional coping scale as well as the self -esteem scale and having a significant high score occurring on the Y scale (T = 60). Subsequently, he has not elevated any of the clinical indices but does score significantly on the conversion hysteria scale as well as the psychopathic deviate scale (T = 60). Thus, Jos has effectively denied psychopathology and has systematically approached test items as means to minimize or deny any emotional duress or psychiatric symptomatology. However, he does provide a code type score of 3-4 with significant scoring on the aforementioned scales. Persons with similar response sets are described as emotionally immature and egocentric and who tend to discharge hostile feelings indirectly. Overtly, persons with such code types present as quiet and conforming but may tend to discharge hostile tendencies under duress. Such persons are characterized as having poorly controlled anger and hostility is expressed in a cyclical fashion. Persons scoring in a similar fashion are often incarcerated for violent acts. The presence of violent and acting out behaviors often results in an arrest history. Persons with similar scoring profiles are described as exhibiting poor judgment under stress and can be behaviorally disruptive when angered. There is often a cyclical pattern of violent outbursts with intermittent periods of inappropriate behavior, with chronic and stable personality characteristics that are extremely difficult to effectively treat. Prior studies describe how such persons are treatment refractory and resist any formal psychological intervention including incarceration. Further discussion of this code type reveals generally extroverted and sociable person, but who tend towards high levels of expressed emotion when angered in the domestic context. Treatment is characterized as having poor outcomes secondary to characterological vulnerabilities often consistent with antisocial personality disorder and/or histories of periodic emotional disruptions secondary to violent acting out. IMPRESSIONS AND RECOMMENDATIONS: As Jos has won his court case asking for discharge, he will be discharged presently from this facility. Discussion with treatment team has included duty to warn concerns given that Jos apparently has made homicidal threats to his estranged as well as to her supports. Police will be notified of his discharge as they were interested in this facility's treatment decisions. Concerns remain as long as Jos and his estranged have not established custody or supports including concerns for his 's safety as well as her 3- year-old's safety as well as the persons that she has been staying with. Jos impresses as unlikely to follow up with any recommended therapies at this point in time and is unlikely to do so unless he is under legal mandate to do so. [id number]/CPS #: [id number] MTDD
--- NOTE | 2016-08-23 07:43 | ED ---
IJoe Michael, scribed for Bruce Yeager MD on 06/21/16 at 1646 . Progress - Progress Note Progress Note: Emergently called to patients room after he fell forward without hitting his head. The pt answered questions and denies all general pain. He does not know what happened to him. The pt does c/o dizziness and slightly diaphoretic. He describes the dizziness as the room spinning. He is tolerating secretion and was given orange juice. The pt was previously hospitalized in [place] for psychiatric problems. The pt's POC Glucose was 51 mg/dL. Psychiatrist request for a head CT, and the pt will receive a head CT. - Results/Orders Results/Orders: CT Brain: Radiologist- Negative Examination - Consult/PCP Time Called: 03:00 Re-Evaluation - Re-Evaluation 1st Re-Evaluation Time: 17:11 Change: Unchanged Comment: patient is alert with no pain complaints. He is medically cleared. 2nd Re-Evaluation Time: 18:03 Change: Unchanged Comment: patient tried to bash his head into the wall. staff had to stop him. Course/Dx - Diagnoses Provider Diagnoses: Psychosis - Provider Notifications Instructed by Provider To: Admit As Inpatient The documentation as recorded by the dangibeJoe Michael accurately reflects the service I personally performed and the decisions made by me, Bruce Yeager MD.
== END 2016-07-01 14:30 | DRG 882 ==
LOC: ED 20:37 → BSU 06-21 18:39
PROVIDERS: ADMIT Psychiatry & Neurology Psychiatry; ATTEND Psychiatry & Neurology Psychiatry
DX: F43.25 Adjustment disorder with mixed disturbance of emotions and conduct (principal); F33.1 Major depressive disorder, recurrent, moderate; R45.851 Suicidal ideations; F41.0 Panic disorder [episodic paroxysmal anxiety]; E16.2 Hypoglycemia, unspecified; F90.9 Attention-deficit hyperactivity disorder, unspecified type; R45.850 Homicidal ideations
CPT/HCPCS: 36415; 70450; 80048; 80053; 80307; 80320; 80329; 81003; 81015; 84443; 85025; 87086; 96102; 99222; 99231; 99232; 99238; A9270-GY; G0480